=== PATIENT | male | born 1955 | race Hispanic/Latino ===

== ENCOUNTER 2018-02-14 20:16 | Emergency (ER) | payer SELFPAY ==
[~2018-02-14] VITALS: Ht 182.9 cm; Wt 72.2 kg
[2018-02-14] MEDS ORDERED: GLUCOTROL10 MG PO (20:36)
[2018-02-14] MEDS ORDERED: LOSARTAN POT25 MG PO (20:37)
[2018-02-14] MEDS ORDERED: INSULIN SC (20:39)
[2018-02-14 21:00] LABS: HEMATOCRIT 34.8 % (39.0-50.0); IMMATURE GRANULOCYTES 0.4 % (0.0-5.0); MEAN CELL VOLUME 88.1 fL CALC (80.0-100.0); MEAN CORPUSCULAR HGB 30.4 pG CALC (26.0-32.0); MEAN CORPUSCULAR HGB CONC 34.5 g/L CALC (32.0-36.0); NEUT# 6.46 thou/uL (1.82-7.42); RED BLOOD COUNT 3.95 mill/uL (4.70-6.10); RED CELL DISTRI WIDTH 11.9 % (11.5-15.5)
[2018-02-14 21:15] LABS: ALBUMIN 3.3 g/dL (3.2-5.0); BILIRUBIN, TOTAL 0.4 mg/dL (0.0-1.4); CREATININE 1.6 mg/dL (0.7-1.3); POTASSIUM 3.9 mmol/l (3.5-5.1); TOTAL PROTEIN 6.5 g/dL (6.3-8.2)
[2018-02-14 21:49] LABS: URINE BILIRUBIN - DIPSTICK NEGATIVE (NEGATIVE); URINE BLOOD DIPSTICK SMALL (NEGATIVE); URINE COLOR YELLOW; URINE GLUCOSE - DIPSTICK 250 mg/dL (NEGATIVE); URINE KETONE TRACE mg/dL (NEGATIVE); URINE LEUK ESTERASE NEGATIVE (NEGATIVE); URINE PROTEIN - DIPSTICK >=300 mg/dL (NEG-TRACE); URINE SPECIFIC GRAVITY 1.025; URINE UROBILINOGEN - DIPSTICK 0.2 E.U./dL (0.2)
[2018-02-14 21:53] LABS: URINE NITRITE - DIPSTICK POSITIVE (Negative)
[2018-02-14 21:54] LABS: URINE CLARITY HAZY
[2018-02-14 21:58] LABS: URINE BACTERIA RARE hpf
[2018-02-14] MEDS ORDERED: ZOFRAN ODT4 MG PO (22:22)
[2018-02-14] MEDS ORDERED: MACROBID100 MG PO (22:22)
[2018-02-14] MEDS ORDERED: PREVACID30 M3 PO (22:22)
[2018-02-14 22:25] VITALS: BP 173/88
== END 2018-02-14 22:30 | disposition home or self-care (01) | DRG 690 ==
LOC: ED 20:16
PROVIDERS: Emergency Medicine
DX: N39.0 Urinary tract infection, site not specified (principal); K80.20 Calculus of gallbladder without cholecystitis without obstruction; I12.9 Hypertensive chronic kidney disease with stage 1 through stage 4 chronic kidney disease, or unspecified chronic kidney disease; N18.9 Chronic kidney disease, unspecified; E11.9 Type 2 diabetes mellitus without complications; Z79.4 Long term (current) use of insulin; Z79.84 Long term (current) use of oral hypoglycemic drugs

== ENCOUNTER 2018-03-02 02:59 | Emergency (ER) | payer SELFPAY ==
[~2018-03-02] VITALS: Ht 182.9 cm; Wt 70.5 kg
[~2018-03-02 02:59] MED LIST: GLUCOTROL10 MG PO; INSULIN SC; LOSARTAN POT25 MG PO; MACROBID100 MG PO; PREVACID30 M3 PO; ZOFRAN ODT4 MG PO
[2018-03-02 03:40] LABS: HEMATOCRIT 33.4 % (39.0-50.0); HEMOGLOBIN 11.7 g/dl (14.0-18.0); IMMATURE GRANULOCYTES 0.4 % (0.0-5.0); MEAN CELL VOLUME 87.7 fL CALC (80.0-100.0); MEAN CORPUSCULAR HGB 30.7 pG CALC (26.0-32.0); NEUT# 9.16 thou/uL (1.82-7.42); RED BLOOD COUNT 3.81 mill/uL (4.70-6.10); RED CELL DISTRI WIDTH 11.6 % (11.5-15.5)
[2018-03-02 04:25] LABS: URINE BILIRUBIN - DIPSTICK NEGATIVE (NEGATIVE); URINE BLOOD DIPSTICK MODERATE (NEGATIVE); URINE COLOR YELLOW; URINE GLUCOSE - DIPSTICK >=1000 mg/dL (NEGATIVE); URINE KETONE NEGATIVE (NEGATIVE); URINE LEUK ESTERASE NEGATIVE (NEGATIVE); URINE NITRITE - DIPSTICK NEGATIVE (Negative); URINE PH 7.5 (4.5-8.0); URINE PROTEIN - DIPSTICK >=300 mg/dL (NEG-TRACE); URINE UROBILINOGEN - DIPSTICK 0.2 E.U./dL (0.2)
[2018-03-02 04:27] LABS: URINE CLARITY CLOUDY
[2018-03-02 04:29] LABS: URINE BACTERIA FEW hpf; URINE SQUAMOUS EPITHELIAL CELL FEW EPI/hpf (0-FEW); URINE WBC 20-50 WBC/hpf (0-5)
[2018-03-02 04:32] LABS: BILIRUBIN, TOTAL 0.3 mg/dL (0.0-1.4); CREATININE 1.8 mg/dL (0.7-1.3); POTASSIUM 3.9 mmol/l (3.5-5.1); TOTAL PROTEIN 6.1 g/dL (6.3-8.2)
[2018-03-02 06:05] VITALS: BP 132/68
== END 2018-03-02 06:05 | disposition short-term general hospital (02) | DRG 282 ==
LOC: ED 02:59
PROVIDERS: Family Medicine
DX: I21.4 Non-ST elevation (NSTEMI) myocardial infarction (principal); I25.2 Old myocardial infarction; I10 Essential (primary) hypertension; R07.9 Chest pain, unspecified; R11.2 Nausea with vomiting, unspecified; E11.9 Type 2 diabetes mellitus without complications; Z79.4 Long term (current) use of insulin; B95.61 Methicillin susceptible Staphylococcus aureus infection as the cause of diseases classified elsewhere
CPT/HCPCS: J1650

== ENCOUNTER 2018-12-06 14:25 | Emergency (ER) | payer OTHER ==
[~2018-12-06] VITALS: Ht 182.9 cm; Wt 68.4 kg
[~2018-12-06 14:25] MED LIST changes: +COZAAR100 MG PO; -LOSARTAN POT25 MG PO
[2018-12-06 15:03] LABS: HEMATOCRIT 34.7 % (39.0-50.0); HEMOGLOBIN 11.9 g/dl (14.0-18.0); IMMATURE GRANULOCYTES 0.9 % (0.0-5.0); MEAN CELL VOLUME 88.1 fL CALC (80.0-100.0); MEAN CORPUSCULAR HGB 30.2 pG CALC (26.0-32.0); MEAN CORPUSCULAR HGB CONC 34.3 g/L CALC (32.0-36.0); NEUT# 8.7 thou/uL (1.82-7.42); RED BLOOD COUNT 3.94 mill/uL (4.70-6.10); RED CELL DISTRI WIDTH 12.1 % (11.5-15.5)
[2018-12-06 15:21] LABS: ALBUMIN 2.7 g/dL (3.2-5.0); BILIRUBIN, TOTAL 0.4 mg/dL (0.0-1.4); CREATININE 2.2 mg/dL (0.7-1.3); TOTAL PROTEIN 5.7 g/dL (6.3-8.2)
[2018-12-06 19:43] LABS: URINE BILIRUBIN - DIPSTICK NEGATIVE (NEGATIVE); URINE BLOOD DIPSTICK MODERATE (NEGATIVE); URINE COLOR YELLOW; URINE GLUCOSE - DIPSTICK 500 mg/dL (NEGATIVE); URINE KETONE NEGATIVE (NEGATIVE); URINE LEUK ESTERASE NEGATIVE (NEGATIVE); URINE NITRITE - DIPSTICK NEGATIVE (Negative); URINE PH 7.5 (4.5-8.0); URINE PROTEIN - DIPSTICK >=300 mg/dL (NEG-TRACE); URINE SPECIFIC GRAVITY 1.025; URINE UROBILINOGEN - DIPSTICK 0.2 E.U./dL (0.2)
[2018-12-06 19:44] LABS: URINE WBC 0-2 WBC/hpf (0-5)
[2018-12-06] MEDS ORDERED: METOPROL TAR25 MG PO (21:32)
[2018-12-06] MEDS ORDERED: LEVEMIR100 UNIT/M SC (21:36)
[2018-12-06] MEDS ORDERED: OMEPRAZOLE20 MG PO (21:37)
[2018-12-06] MEDS ORDERED: FIASP100 UNIT/M SC (21:37)
[2018-12-06] MEDS ORDERED: FERROUS SULF324 M1 PO (21:38)
[2018-12-06] MEDS ORDERED: EZETIMIBE10 MG PO (21:39)
[2018-12-06] MEDS ORDERED: OZEMPIC2 MG/1.5 M (21:40)
[2018-12-06] MEDS ORDERED: PLAVIX75 MG PO (22:02)
[2018-12-06] MEDS ORDERED: PROCHLORPER25 MG RE (22:51)
[2018-12-06 23:16] VITALS: BP 159/98
== END 2018-12-06 19:12 | disposition home or self-care (01) ==
LOC: ED 14:25 → ED-I 20:00
PROVIDERS: Family Medicine
DX: R11.2 Nausea with vomiting, unspecified (principal); R10.11 Right upper quadrant pain; E11.22 Type 2 diabetes mellitus with diabetic chronic kidney disease; I12.9 Hypertensive chronic kidney disease with stage 1 through stage 4 chronic kidney disease, or unspecified chronic kidney disease; N18.9 Chronic kidney disease, unspecified; Z79.4 Long term (current) use of insulin; Z90.49 Acquired absence of other specified parts of digestive tract
CPT/HCPCS: Q9967

== ENCOUNTER 2018-12-26 16:34 | Emergency (ER) | payer OTHER ==
[~2018-12-26] VITALS: Ht 182.9 cm; Wt 69.5 kg
[~2018-12-26 16:34] MED LIST changes: +EZETIMIBE10 MG PO; +FERROUS SULF324 M1 PO; +FIASP100 UNIT/M SC; +LEVEMIR100 UNIT/M SC; +METOPROL TAR25 MG PO; +OMEPRAZOLE20 MG PO; +OZEMPIC2 MG/1.5 M; +PLAVIX75 MG PO; +PROCHLORPER25 MG RE
[2018-12-26] MEDS ORDERED: VITAMIN D5000 UNI1 PO (16:52)
[2018-12-26] MEDS ORDERED: B121000 MCG PO (16:53)
[2018-12-26 17:10] LABS: HEMATOCRIT 34.1 % (39.0-50.0); HEMOGLOBIN 11.4 g/dl (14.0-18.0); IMMATURE GRANULOCYTES 0.3 % (0.0-5.0); MEAN CELL VOLUME 87.9 fL CALC (80.0-100.0); MEAN CORPUSCULAR HGB 29.4 pG CALC (26.0-32.0); MEAN CORPUSCULAR HGB CONC 33.4 g/L CALC (32.0-36.0); NEUT# 9.06 thou/uL (1.82-7.42); RED BLOOD COUNT 3.88 mill/uL (4.70-6.10); RED CELL DISTRI WIDTH 12.3 % (11.5-15.5)
[2018-12-26 17:22] LABS: CREATININE 2.4 mg/dL (0.7-1.3); POTASSIUM 3.5 mmol/l (3.5-5.1)
[2018-12-26 17:48] VITALS: BP 156/88
== END 2018-12-26 17:48 | disposition short-term general hospital (02) ==
LOC: ED 16:34
PROVIDERS: Family Medicine
DX: R07.9 Chest pain, unspecified (principal); R94.31 Abnormal electrocardiogram [ECG] [EKG]; E11.22 Type 2 diabetes mellitus with diabetic chronic kidney disease; I12.9 Hypertensive chronic kidney disease with stage 1 through stage 4 chronic kidney disease, or unspecified chronic kidney disease; N18.9 Chronic kidney disease, unspecified; Z79.4 Long term (current) use of insulin; Z95.1 Presence of aortocoronary bypass graft; Z88.6 Allergy status to analgesic agent
CPT/HCPCS: J1644

== ENCOUNTER 2020-10-05 13:51 | Emergency (ER) | payer OTHER ==
[~2020-10-05] VITALS: Ht 182.9 cm; Wt 73.0 kg
[~2020-10-05 13:51] MED LIST changes: +B121000 MCG PO; +VITAMIN D5000 UNI1 PO
[2020-10-05] MEDS ORDERED: BACTROBAN TOP (15:00)
[2020-10-05] MEDS ORDERED: KEFLEX500 MG PO (15:00)
[2020-10-05 15:03] VITALS: BP 150/76
== END 2020-10-05 15:08 | disposition home or self-care (01) ==
LOC: ED 13:51
DX: S80.811A Abrasion, right lower leg, initial encounter (principal); I12.0 Hypertensive chronic kidney disease with stage 5 chronic kidney disease or end stage renal disease; E11.22 Type 2 diabetes mellitus with diabetic chronic kidney disease; N18.6 End stage renal disease; E78.5 Hyperlipidemia, unspecified; W01.0XXA Fall on same level from slipping, tripping and stumbling without subsequent striking against object, initial encounter; Y93.89 Activity, other specified; Y92.512 Supermarket, store or market as the place of occurrence of the external cause; Z99.2 Dependence on renal dialysis; Z95.1 Presence of aortocoronary bypass graft; Z79.4 Long term (current) use of insulin

== ENCOUNTER 2021-01-04 07:42 | Emergency (ER) | payer MEDICARE, MEDICAID ==
[~2021-01-04] VITALS: Ht 182.9 cm; Wt 67.0 kg
[~2021-01-04 07:42] MED LIST changes: +BACTROBAN TOP; +KEFLEX500 MG PO
[2021-01-04 08:29] LABS: IMMATURE GRANULOCYTES 0.3 % (0.0-5.0); MEAN CORPUSCULAR HGB 32.5 pG CALC (26.0-32.0); MEAN CORPUSCULAR HGB CONC 31.7 g/dL CAL (32.0-36.0); NEUT# 10.09 thou/uL (1.82-7.42); RED BLOOD COUNT 4.28 mill/uL (4.70-6.10); RED CELL DISTRI WIDTH 18.7 % (11.5-15.5)
[2021-01-04 08:38] LABS: HEMATOCRIT 43.8 % (39.0-50.0); HEMOGLOBIN 13.9 g/dl (14.0-18.0); MEAN CELL VOLUME 102.3 fL CALC (80.0-100.0)
[2021-01-04 08:45] LABS: AMYLASE 159 u/l (30-110); BUN 30 mg/dL (8-23); CARBON DIOXIDE 30 mmol/l (22-30); CHLORIDE 90 mmol/l (95-108); ETHYL ALCOHOL 0 mg/dl (0-30); LIPASE 127 u/l (23-300); SODIUM 134 mmol/l (137-146)
[2021-01-04 08:48] LABS: ALBUMIN 4.2 g/dL (3.2-5.0); ALKALINE PHOSPHATASE 263 u/l (38-126); ANION GAP 18 (6-22 (CALC)); BILIRUBIN, TOTAL 1.6 mg/dL (0.0-1.4); BUN/CREATININE RATIO 6 (12-20 (CALC)); GFR 12 ML/MIN (>=60 (CALC)); GFR FOR AFR.AMER. 14 ML/MIN (>=60 (CALC)); POTASSIUM 4.3 mmol/l (3.5-5.1); SGOT/AST 41 u/l (19-48); TOTAL PROTEIN 8.5 g/dL (6.3-8.2)
[2021-01-04 08:50] LABS: ACT PARTIAL THROMBO TIME 22.1 SECONDS (20.0-32.5); INTERNATIONAL NORMALIZED RATIO 1.1 RATIO (0.7-1.3); PROTHROMBIN TIME 11.7 SECONDS (9.0-12.5)
[2021-01-04 11:38] VITALS: BP 174/99
--- NOTE | 2021-01-06 07:48 | NUR ---
Preliminary blood culture shows Gram (-) rods in 2/4 vials. Pt was transfered to [facility]. Faxed results to [facility] at [phone]. No additional recommendations at this time.
== END 2021-01-04 11:39 | disposition short-term general hospital (02) ==
LOC: ED 07:42
DX: R07.9 Chest pain, unspecified (principal); R10.10 Upper abdominal pain, unspecified; R11.10 Vomiting, unspecified; L03.115 Cellulitis of right lower limb; E11.22 Type 2 diabetes mellitus with diabetic chronic kidney disease; I12.0 Hypertensive chronic kidney disease with stage 5 chronic kidney disease or end stage renal disease; N18.6 End stage renal disease; E11.621 Type 2 diabetes mellitus with foot ulcer; L97.419 Non-pressure chronic ulcer of right heel and midfoot with unspecified severity; Z99.2 Dependence on renal dialysis; Z79.4 Long term (current) use of insulin; Z79.899 Other long term (current) drug therapy; E78.5 Hyperlipidemia, unspecified; Z79.02 Long term (current) use of antithrombotics/antiplatelets; Z95.1 Presence of aortocoronary bypass graft; Z95.810 Presence of automatic (implantable) cardiac defibrillator; Z98.62 Peripheral vascular angioplasty status; Z87.19 Personal history of other diseases of the digestive system; Z20.822 Contact with and (suspected) exposure to COVID-19
CPT/HCPCS: S0164